=== PATIENT | female | born 1960 ===

== ENCOUNTER 2017-12-06 06:02 | Day surgery (SDC) | payer MEDICAID ==
[2017-12-04 08:57] VITALS: BMI 27.8
[2017-12-06] MEDS ORDERED: Bacitracin Ointment 30 GM TUBE ONE (06:29)
[2017-12-06] MEDS ORDERED: Lidocaine 2% MPF (5 ml) Inj ONE ×4 (06:29→08:11)
[2017-12-06] MEDS ORDERED: ceFAZolin 1 gm in NS 1 GM/100 ML BAG IVPB ONE (06:29)
[2017-12-06] MEDS ORDERED: Bupivacaine HCl 0.5% PF (30 ml) Inj ONE (06:29)
[2017-12-06] MEDS ORDERED: Midazolam 2 MG/2 ML VIAL ONE (07:44)
[2017-12-06] MEDS ORDERED: Propofol 10 mg/ml Inj (20 ML) ONE ×3 (07:44→09:03)
[2017-12-06] MEDS ORDERED: Triamcinolone Acetonide 40 mg/mL Inj ONE ×2 (08:25→08:59)
[2017-12-06] MEDS ORDERED: Dexamethasone 4 mg/1 ml ONE (08:25)
[2017-12-06] MEDS ORDERED: HYDROmorphone 0.5 mg/0.5 ml ISec IVP PRN (09:09)
--- NOTE | 2017-12-06 09:25 | PCM.SURG1 ---
Surgeon's Initial Post Op Note - Surgeon's Notes Surgeon: Dr. Valencia Casino Banker: Dr. Millan Type of Anesthesia: IV Sedation, Local Pre-Operative Diagnosis: Right foot bunion deformity and 4th digit hammertoe Operative Findings: 3-0 vicryl, 4-0 vicryl, 4-0 nylon Post-Operative Diagnosis: same Operation Performed: right foot almanza, 4th digit DIPJ arthroplasty Specimen/Specimens Removed: 4th digit bone Estimated Blood Loss: EBL {In ML}: 5 Blood Products Given: N/A Drains Used: No Drains Post-Op Condition: Good Date of Surgery/Procedure: 12/06/17 Time of Surgery/Procedure: 08:25
[2017-12-06] MEDS ORDERED: Oxycodone/Acetaminophen 5/325 mg Tab PO PRN ×2 (10:00)
--- NOTE | 2017-12-06 10:54 | RAD ---
PROCEDURE: Right Foot Radiographs. HISTORY: right foot surgery COMPARISON: None. FINDINGS: BONES: Fourth middle phalanx osteotomy. JOINTS: Normal. SOFT TISSUES: Dorsal forefoot soft tissue swelling. OTHER FINDINGS: Achilles enthesophyte. Inferior plantar calcaneal spur. IMPRESSION: Fourth middle phalanx osteotomy with regional postsurgical changes.
[2017-12-06 12:34] VITALS: BP 103/56; PULSE 65; RESP 16; TEMP 98.3; O2SAT 100
--- NOTE | 2017-12-10 14:11 | PCM.OP ---
Operative Report - Operative Report Date of Surgery/Procedure: 12/06/17 Time of Surgery/Procedure: 08:00 Surgeon: Dr. Valencia Learning Disabilities Resource Teacher: Dr. shady Millan Anesthesia/Sedation: IV sedatino and Local Pre-Operative Diagnosis: 1)Right foot hallux Bunion deformity. 2)Right foot 4th digit hammertoe deformity Post-Operative Diagnosis: same Indication for Surgery: Indications: The patient is a 57 year-old female with the above diagnoses. The patient has exhausted conservative treatment at this time and now requests surgical intervention. The patient signed the consent after careful explanation of risks, benefits, complication and alternatives for surgical procedure. No guarantees were given nor implied. 2g of Ancef IV were given to the pt hour prior to the procedure. NPO status was confirmed prior to taking pt to the OR. Operative Findings: Preparation: The patient was brought to the operating room and placed on the operating room table in supine position. A well-padded pneumatic ankle tourniquet was placed to the patient's RIGHT ankle in a supramalleolar position. After induction of IV sedation, the patient received a total of 20 mL of 0.5% Marcaine plain in local block fashion to the RIGHT foot. Once local anesthesia was achieved, the RIGHT foot was then prepped and draped in usual sterile manner. Esmarch was utilized to exsanguinate the patient's RIGHT foot. Pneumatic ankle tourniquet was then inflated to 250 mmHg and procedure began. Procedure/Operation Description: Procedure: 1)Right foot 1st metatarsal head resection. . Attention was then directed to the dorsal medial aspect of the patients first metatarsal phalangeal joint where an approximately 5.5 cm linear longitudinal incision was made medial and parallel to the tendon of the extensor hallucis longus and involved the contour of the deformity. The incision was deepened through the subcutaneous tissues with care being taken to identify and retract all vital neurovascular structures, all bleeders were cauterized and ligated as necessary. At this time a linear, periosteal and capsular incision was made overlying the first metatarsal phalangeal joint. The periosteal and capsular structures were then carefully dissected free of their osseous attachments and reflected medially and laterally thus exposing the head of the metatarsal as well as the base of the proximal phalanx to the operative field. Next utilizing a sagittal bone saw the dorsal and medial prominences of 1st metatarsal head was resected and passed from the operative field. The wound was then flushed with copious amounts of sterile normal saline. Medial capsulorrhaphy of the 1st metatarsophalangeal joint was performed by excising adequate portion of medial capsule measuring 1.5cm x 0.5cm vertically and re- approximating it utilizing #2-0, 3-0 vicryl. Assessment of the deformity was done at this time and noted to be excellent. The subcutaneous tissue was reapproximated with # 4-vicryl. The skin was reapproximated with # 4-0 Prolene. 2)Right foot 4th digit DIPJ arthroplasty. Attention was directed to the dorsal aspect of the 4th digit right foot where a linear longitudinal incision was made overlying the distal interphalangeal joint of the 4th digit. The incision was deepened through subcutaneous tissue with care being taken to identify and retract all vital neurovascular structures. All bleeders were cauterized and ligated as necessary. At this time, a transverse tenotomy and capsulotomy was performed to the proximal interphalangeal joint of the 4th digit , right foot. The head of the middle phalanx was then freed of its capsular and ligamentous attachments. Next utilizing an oscillating saw, the head of. the distal phalanx was resected and passed from the operative site. The wound was then flushed with copious amount of sterile normal saline. Next, the extensor tendon was reapproximated with #3-0 vicryl. Correction of the deformity was assessed at this time and noted to be excellent. The skin was reapproximated with # 4-Prolene. Right foot was then applied with betadine soaked adaptic, 4x4 , cling, coban, stockinet, and jazzy bandage. Estimated Blood Loss: 5 mL Complications: None Discharge & Condition: Postoperative Condition: The patient tolerated the anesthesia and procedure well and was escorted to the recovery room with vital signs stable and neurovascular status intact to the Right foot. This patient will follow up with Dr. Valencia
== END 2017-12-06 14:18 | disposition home or self-care (01) ==
LOC: C.SDS 06:02
PROVIDERS: ATTEND Podiatrist Foot & Ankle Surgery
DX: M20.11 Hallux valgus (acquired), right foot (principal); M20.41 Other hammer toe(s) (acquired), right foot; M21.611 Bunion of right foot
CPT/HCPCS: 28124; 73620; 88304; 88305; 97116; 97161; G8978; G8979; G8980; J0690; J1100; J2001; J2250; J2405; J2704; J3010; J3301